=== PATIENT | male | born 1955 | race Caucasian/White ===

== ENCOUNTER → 2023-10-01 10:02 | Outpatient (REF) | payer MEDICARE, OTHER, SELFPAY ==
[2023-10-01 12:06] LABS: ALT (SGPT) 21 U/L (0-50); AST (SGOT) 27 U/L (17-59); Albumin 4.6 g/dl (3.5-5.0); Alkaline Phosphatase 76 U/L (38-126); Blood Urea Nitrogen 17 mg/dl (9-20); Calcium 9.8 mg/dl (8.4-10.2); Carbon Dioxide 27 mmol/L (22-30); Chloride 101 mmol/L (98-107); Glucose 96 mg/dl (70-99); HDL Cholesterol 30 mg/dl; LDL Cholesterol, Calculated 79 mg/dl; Potassium 4.3 mmol/L (3.5-5.1); Sodium 138 mmol/L (135-145); Total Bilirubin 1.1 mg/dl (0.2-1.3); Total Cholesterol 136 mg/dl (50-199); Total Protein 7.4 g/dl (6.3-8.2); Triglyceride 137 mg/dl (10-149); Very Low Density Lipoprotein 27 mg/dl (0-30); eGFR > 60.00
[2023-10-01 12:14] LABS: Glycohemoglobin (HgbA1c) 5.5 % (4.0-5.6)
== END ==
LOC: HWLAB 10:02
PROVIDERS: ATTENDING PHYSICIAN Family Medicine
DX: E78.5 Hyperlipidemia, unspecified (principal); R73.01 Impaired fasting glucose
CPT/HCPCS: 36415; 80053; 80061; 83036

== ENCOUNTER → 2024-03-30 07:22 | Outpatient (REF) | payer MEDICARE, OTHER, SELFPAY ==
[2024-03-30 09:40] LABS: % Immature Granulocytes 0.2 % (0-0.5); % Lymphocytes 25.1 % (20.5-51.1); % Monocytes 9.8 % (1.7-9.3); % Neutrophils 60.9 % (42.2-75.2); Absolute Basophils 0.1 10^3/uL (0-0.2); Absolute Eosinophils 0.2 10^3/uL (0-0.7); Absolute Lymphocytes 1.3 10^3/uL (1.2-3.4); Absolute Monocytes 0.5 10^3/uL (0.1-0.6); Hematocrit 43.9 % (39.0-52.0); Hemoglobin 15.3 g/dL (13.0-18.0); Mean Corp Hgb Conc. 34.9 g/dL (33.0-37.0); Mean Corpuscular Hgb 30.1 pg (27.0-31.0); Mean Corpuscular Volume 86.2 fL (80.0-94.0); Mean Platelet Volume 10.6 fL (7.4-10.4); Nucleated Red Blood Cells % 0 % (-); Platelet Count 179 10^3/uL (130-400); Red Blood Cell Count 5.09 10^6/uL (4.70-6.10); Red Cell Dist. Width 12.6 % (11.5-14.5)
[2024-03-30 09:40] LABS: Urine Albumin Negative (Neg - Trace); Urine Bilirubin Negative (Negative); Urine Character Clear (Clear); Urine Color Yellow; Urine Glucose Negative (Negative); Urine Ketone Negative (Negative); Urine Leukocyte Negative (Negative); Urine Nitrite Negative (Negative); Urine Occult Blood Negative (Negative); Urine Specific Gravity 1.015 (<1.030); Urine Urobilinogen Negative (Neg - 1+); Urine pH 6.5 (5.0-9.0)
[2024-03-30 10:46] LABS: Glycohemoglobin (HgbA1c) 5.4 % (4.0-5.6); PSA, Total - Screen 2.19 ng/ml (0.0-4.0); TSH Reflex To Free T4 2.77 uIU/ml (0.47-4.68)
[2024-03-30 11:14] LABS: Blood Urea Nitrogen 17 mg/dl (9-20); Calcium 9.5 mg/dl (8.4-10.2); Carbon Dioxide 24 mmol/L (22-30); Chloride 104 mmol/L (98-107); Glucose 103 mg/dl (70-99); HDL Cholesterol 35 mg/dl; LDL Cholesterol, Calculated 83 mg/dl; Potassium 4.5 mmol/L (3.5-5.1); Sodium 140 mmol/L (135-145); Total Cholesterol 137 mg/dl (50-199); Triglyceride 95 mg/dl (10-149); Very Low Density Lipoprotein 19 mg/dl (0-30); eGFR > 60.00
[2024-03-30 11:30] LABS: ALT (SGPT) 29 U/L (0-50); AST (SGOT) 37 U/L (17-59); Albumin 4.6 g/dl (3.5-5.0); Alkaline Phosphatase 67 U/L (38-126); Total Bilirubin 1.1 mg/dl (0.2-1.3)
== END ==
LOC: HWLAB 07:22
PROVIDERS: ATTENDING PHYSICIAN Family Medicine
DX: E78.5 Hyperlipidemia, unspecified (principal); E66.9 Obesity, unspecified; R73.01 Impaired fasting glucose; I10 Essential (primary) hypertension; Z12.5 Encounter for screening for malignant neoplasm of prostate
CPT/HCPCS: 36415; 80053; 80061; 81003; 83036; 84443; 85025; G0103

== ENCOUNTER → 2024-09-25 07:40 | Outpatient (REF) | payer MEDICARE, OTHER, SELFPAY ==
[2024-09-25 10:07] LABS: ALT (SGPT) 28 U/L (0-50); AST (SGOT) 30 U/L (17-59); Albumin 4.4 g/dl (3.5-5.0); Alkaline Phosphatase 61 U/L (38-126); Blood Urea Nitrogen 26 mg/dl (9-20); Calcium 9.5 mg/dl (8.4-10.2); Carbon Dioxide 29 mmol/L (22-30); Chloride 103 mmol/L (98-107); Glucose 99 mg/dl (70-99); HDL Cholesterol 34 mg/dl; LDL Cholesterol, Calculated 94 mg/dl; Potassium 4.6 mmol/L (3.5-5.1); Sodium 138 mmol/L (135-145); Total Bilirubin 0.9 mg/dl (0.2-1.3); Total Cholesterol 161 mg/dl (50-199); Total Protein 7.2 g/dl (6.3-8.2); Triglyceride 168 mg/dl (10-149); Very Low Density Lipoprotein 33 mg/dl (0-30); eGFR > 60.00
== END ==
LOC: HWLAB 07:40
PROVIDERS: ATTENDING PHYSICIAN Family Medicine
DX: E78.5 Hyperlipidemia, unspecified (principal)
CPT/HCPCS: 36415; 80053; 80061

== ENCOUNTER → 2025-04-04 07:51 | Outpatient (REF) | payer MEDICARE, OTHER, SELFPAY ==
[2025-04-04 09:40] LABS: Hematocrit 42.0 % (39.0-52.0); Hemoglobin 14.7 g/dL (13.0-18.0); Mean Corp Hgb Conc. 35.0 g/dL (33.0-37.0); Mean Corpuscular Volume 87.5 fL (80.0-94.0); Nucleated Red Blood Cells % 0 % (-); Platelet Count 175 10^3/uL (130-400); Red Cell Dist. Width 12.3 % (11.5-14.5)
[2025-04-04 09:46] LABS: Urine Character Clear (Clear)
[2025-04-04 10:09] LABS: Glycohemoglobin (HgbA1c) 5.3 % (4.0-5.6)
[2025-04-04 10:10] LABS: ALT (SGPT) 28 U/L (0-50); AST (SGOT) 30 U/L (17-59); Albumin 4.4 g/dl (3.5-5.0); Alkaline Phosphatase 54 U/L (38-126); Blood Urea Nitrogen 22 mg/dl (9-20); Calcium 9.3 mg/dl (8.4-10.2); Carbon Dioxide 28 mmol/L (22-30); Chloride 105 mmol/L (98-107); Glucose 97 mg/dl (70-99); HDL Cholesterol 36 mg/dl; LDL Cholesterol, Calculated 90 mg/dl; Potassium 4.4 mmol/L (3.5-5.1); Sodium 140 mmol/L (135-145); Total Protein 7.2 g/dl (6.3-8.2); Very Low Density Lipoprotein 20 mg/dl (0-30); eGFR > 60.00
[2025-04-04 10:41] LABS: PSA, Total - Screen 2.57 ng/ml (0.0-4.0)
[2025-04-04 10:55] LABS: Urine Red Blood Cell 0-2 /HPF (0-2); Urine White Cell 0-2 /HPF (0-5)
== END ==
LOC: HWLAB 07:51
PROVIDERS: ATTENDING PHYSICIAN Family Medicine; FAMILY PHYSICIAN Internal Medicine
DX: E78.5 Hyperlipidemia, unspecified (principal); R94.31 Abnormal electrocardiogram [ECG] [EKG]; E66.9 Obesity, unspecified; N23 Unspecified renal colic; G47.33 Obstructive sleep apnea (adult) (pediatric); Z00.01 Encounter for general adult medical examination with abnormal findings; R73.01 Impaired fasting glucose; Z12.5 Encounter for screening for malignant neoplasm of prostate
CPT/HCPCS: 36415; 80053; 80061; 81003; 81015; 83036; 84443; 85025; 87086; G0103

== ENCOUNTER → 2025-04-06 12:13 | Outpatient (REF) | payer MEDICARE, OTHER, SELFPAY | LOC: HWRAD 12:13 | PROVIDERS: ATTENDING PHYSICIAN Internal Medicine | DX: M54.50 Low back pain, unspecified (principal) | CPT/HCPCS: 72100 ==

== ENCOUNTER → 2025-04-27 09:34 | Outpatient (REF) | payer MEDICARE, OTHER, SELFPAY | LOC: HWRAD 09:34 | PROVIDERS: ATTENDING PHYSICIAN Urology; FAMILY PHYSICIAN Internal Medicine | DX: N20.0 Calculus of kidney (principal) | CPT/HCPCS: 74018 ==